=== PATIENT | female | born 1985 | race Caucasian/White ===

== ENCOUNTER 2018-01-07 06:05 | Day surgery (SDC) | payer OTHER ==
[2018-01-07] MEDS ORDERED: ceFAZolin 2 GM/50 ML 2 GM/50 ML BAG IV ONE (06:31)
[2018-01-07] MEDS ORDERED: LACTATED RINGERS 1,000 ML IV ONE ×3 (06:55→14:08)
[2018-01-07 06:58] LABS: HCG UR QUAL NEGATIVE
--- NOTE | 2018-01-07 07:21 | ANESTHESIA ---
Pre-Anesthesia VS, & Labs - Diagnosis ACL tear - Procedure R ACL repair Vital Signs: Temp Pulse Resp BP Pulse Ox 36.7 C 87 16 113/76 100 01/07/18 06:40 01/07/18 06:40 01/07/18 06:40 01/07/18 06:40 01/07/18 06:40 Height 5 ft 4 in Weight (kg) 71.8 kg - NPO >8 hours - Is Patient ?: No - Lab Results Lab results reviewed: Yes Home Medications and Allergies Home Medications: Ambulatory Orders Norgestimate-Ethinyl Estradiol [Pat 0.25-0.035 mg Tablet] 1 each PO 12/28/17 buPROPion [Wellbutrin Sr] 150 mg PO BID 12/28/17 Norgestimate-Ethinyl Estradiol [Pat 0.25-0.035 mg Tablet] 1 each PO 12/28/17 buPROPion [Wellbutrin Sr] 150 mg PO BID 12/28/17 Allergies/Adverse Reactions: Allergies Allergy/AdvReac Type Severity Reaction Status Date / Time amoxicillin Allergy Hives Verified 12/28/17 12:05 Anes History & Medical History - Anesthetic History Anesthesia Complications: reports: No previous complications Family history of Anesthesia Complications: Denies Family history of Malignant Hyperthermia: Denies - Medical History Cardiovascular: reports: None Pulmonary: reports: None Gastrointestinal: reports: None Urinary: reports: None Musculoskeletal: reports: Other Endocrine/Autoimmune: reports: None Skin: reports: None Exam General: Alert, Oriented x3 Dental: WNL Mouth Openin Fingerbreadth Neck Mobility: Normal Mallampati classification: II Thyromental Distance: 4-6 cm Respiratory: Lungs clear, Normal breath sounds, No respiratory distress, No accessory muscle use Cardiovascular: Regular rate Neurological: Normal speech Mental/Cognitive Status: Alert/Oriented X3, Normal for patient Plan Anesthesia Type: General, Femoral Block (possible) Consent for Procedure(s) Verified and Reviewed: Yes Code Status: Attempt Resuscitation ASA classification: 1-Healthy patient Is this case an emergency?: No
[2018-01-07] MEDS ORDERED: BUPIVACAINE 0.25% PF 30 ML VIAL ONE (07:31)
[2018-01-07] MEDS ORDERED: fentaNYL 100 MCG/2 ML VIAL IVP ONE (07:45)
[2018-01-07] MEDS ORDERED: KETOROLAC 30 MG/ML VIAL IVP ONE (07:45)
[2018-01-07] MEDS ORDERED: ROPIVACAINE 0.5% PF 20 ML AMPULE EP ONE (07:45)
[2018-01-07] MEDS ORDERED: MIDAZOLAM 2 MG/2 ML VIAL IVP ONE (07:45)
[2018-01-07] MEDS ORDERED: ONDANSETRON 4 MG/2 ML VIAL IVP ONE (07:45)
[2018-01-07] MEDS ORDERED: PROPOFOL 200 MG/20 ML VIAL IVP ONE (07:45)
[2018-01-07] MEDS ORDERED: DEXAMETHASONE 4 MG/ML VIAL IVP ONE (07:45)
[2018-01-07] MEDS ORDERED: LIDOCAINE-MPF 2% 5 ML VIAL IM ONE (07:45)
[2018-01-07] MEDS ORDERED: EPINEPHrine 1 MG/ML AMP ONE ×2 (08:10→10:20)
[2018-01-07] MEDS ORDERED: EPINEPHrine 1 MG/ML AMP IVP ONE (08:23)
[2018-01-07] MEDS ORDERED: BUPIVACAINE 0.25% PF 30 ML VIAL SUBQ ONE ×2 (08:23→11:20)
[2018-01-07] MEDS ORDERED: ONDANSETRON 4 MG/2 ML VIAL IVP PRN (11:47)
[2018-01-07] MEDS ORDERED: oxyCODONE 5 MG TABLET PO PRN (11:47)
--- NOTE | 2018-01-07 11:54 | OPERATIVE REPORT ---
Operative Report - General Planned Procedure: Right knee arthroscopic assisted ACL reconstruction, meniscal repair versus Pre-Op Diagnosis: Right knee ACL tear, medial meniscal tear, patellofemoral chondromalacia. Procedure Performed: Right knee arthroscopic assisted ACL reconstruction with BTB autograft, Right medial meniscus repair, right lateral meniscal debridement, patellar chondroplasty Post Op Diagnosis: Right knee ACL tear, medial meniscal tear, lateral meniscal fraying, patell - Procedure Note Primary Surgeon: Jose Martinez MD Secondary Surgeon: Moses Tovar MD Anesthesia Technique: General LMA Estimated Blood Loss (mL): 75 Complications: None - Other Other Information/Narrative: Examination under anesthesia: Extension -005, flexion 140, Alexandro 2B, pivot shift ++, stable to varus and valgus stress at 0 and 30, negative posterior drawer. Arthroscopic findings: 1. Patella and trochlea: Mild patellar fraying, Grade I-II 2. Medial compartment: Torn PH MM at periphery: With subluxation into the joint with valgus stress and knee flexion. Some chondal fissuring 3. Lateral compartment: Near circumferential lateral meniscus with redundant tissue in lateral notch (possibly old, synovialized ACL remnant) 4. ACL absent. PCL intact. Implants: Femur: Arthrex BTB tight rope Tibia: Arthrex 9x 20 mm metal interference screw, Arthrex 4.75 mm swivel lock anchor Tourniquet: Right thigh 250 mmHg, approximately 130 minutes Indications: Is a 32-year-old female with long-standing history of right knee pain, most recently she [place] on the ship several years ago and had persistent pain and instability of her right knee. During that injury she denied any significant swelling nor inability to bear weight, However MRI and clinical exam were both consistent with a right ACL insufficiency. She had failed appropriate nonoperative management to include activity modification physical therapy and oral NSAID use. Risk benefits and alternatives to right knee arthroscopy with possible ACL reconstruction were discussed at length with the patient, including risks of bleeding, infection, fracture, implant complications, damage to nerves, blood vessels and other structures, persistent knee pain, need for further procedures, blood clots to include pulmonary embolus, and risks of anesthesia, heart attack, stroke, . After long discussion she desired to proceed with surgery for right ACL reconstruction and meniscal repair versus debridement. Procedure Details: The patient was met in the preoperative hold area. We reviewed the risks benefits and alternatives to surgery. Consent was reviewed. All questions were answered. The patient confirmed the surgical site as the right knee. I initialed the surgical site. The patient then met with anesthesia and was brought back to the operating room. The patient was placed supine on the operating table. A well-padded tourniquet was placed on the thigh. A general anesthetic was induced and an LMA was placed. An examination under anesthesia was performed knee with the above-stated findings. The knee was then prepped and draped in the usual sterile fashion. A surgical timeout was then performed. The correct patient, correct procedure, and the correct surgical site were confirmed by everyone in the room. Perioperative antibiotics had been delivered. Following timeout and administration of antibiotics an 11 blade scalpel was used to make an anteromedial and anterolateral arthroscopic portal. The arthroscope was introduced into the knee and a diagnostic arthroscopy was performed with the above-stated findings. The arthroscopic equipment was removed and the Esmarch was used to exsanguinate the lower extremity and the tourniquet was raised to 250 mmHg. A 10 blade was used to make a midline incision over the patellar tendon. Dissection was carried down to the level of the peritenon. The peritenon was incised and medial and lateral flaps of the peritenon raised to expose the entirety of the patellar tendon, the distal patella, and tibial tubercle. A 10 blade as used to harvest the central one cm of the patellar tendon. An oscillating saw and osteotomes were used to harvest a 10 x 30 mm bone plug from the tibial tubercle. An oscillating saw and osteotomes were used to harvest a 10 x 20 mm bone plug from the distal patella. 2 #2 fiber wires were placed anterior to posterior through the tibial tubercle bone plug to aid in graft passage and fixation. The graft was taken to the back table and trimmed to fit through a 9 mm tunnel, and the tight rope was placed through the patellar bone plug. A soft tissue notchplasty was performed with a combination of the arthroscopic sucker shaver and ArthroCare wand. The excess soft tissue that appeared to bridge from the posterior root of the lateral meniscus to the anterior root of the lateral meniscus was debrided taking care to not destabilize the lateral meniscus. Next we turned our attention to the medial meniscus, To better visualize the tear we removed the arthroscopic cannula into the medial Gillquist interval over a switching stick, the cervix was visualized and was able to directly visualize the meniscocapsular separation/the peripheral posterior horn medial meniscal tear.This was then prepared using a ball rasp. Then a [employer] FasT-Fix 360 was introduced into the medial compartment and deployed in Horizontal mattress fashion securing the posterior horn to the posterior capsule. The posterior horn was then probed and found to be stable. Next we turned our attention to preparing the femoral and tibial tunnels. The Arthrex flip cutter guide was set to 100 and placed onto the [place] femoral footprint of the ACL. A stab incision was made on the distal lateral thigh through the IT band to accommodate the flip cutter trocar. The trocar was placed on the lateral femoral condyle. The flip cutter was drilled through the trocar and into the intra-articular notch. The fit flip cutter blade was engaged and a 9 mm socket was drilled to a depth of 25 mm. A passing suture was placed through the flip cutter guide and the guide instruments were then removed. The tibial tunnel guide was placed on the tibial footprint of the ACL. A guidepin was placed through the trocar and then overreamed with a 9 mm reamer. The passing suture was retrieved from the joint and brought out through the tibial tunnel to aid in graft passage. The graft was then retrieved from the back table. The graft was passed in a retrograde fashion through the tibial tunnel. The tight rope button was placed onto the lateral femoral cortex with excellent security. The tight rope was then tightened and the patellar bone plug was shuttled up into the femoral socket with excellent fit. Longitudinal traction was used to test fixation, which was solid. The knee was then cycled and placed into full extension and an 9 x 20 mm metal cannulated interference screw was placed in the tibia. A Alexandro was performed and was 1A. The scope was reinserted in the knee and there was no prominent hardware. The tension on the graft was appropriate. There was no notch impingement. The tightrope was checked by retightening, followed by 3 alternating half hitches for backup fixation. The excess limbs of suture were then trimmed. Backup fixation on the tibia was performed with a 4.75 mm swivel lock. This was drilled and tapped in standard fashion and then for all 4 limbs of the FiberWire from the tibial side of the autograft were placed through the swivel lock and secured in standard fashion. This was reassessed and found to have good tension. The wounds were then copiously irrigated. The excess trimmings of bone were placed back into the patellar donor site. DBX was then used to fill the remaining void. The patellar tendon was gently reapproximated with 0 Vicryl suture in a simple stitch at the inferior pole of the patella. The peritenon was closed with a running 0 Vicryl suture. All wounds were again copiously irrigated with normal saline and we began our closure. The IT band was closed with 0 Vicryl suture. Subcutaneous tissues were closed with 2-0 Vicryl. Skin was closed with a running buried 3-0 Monocryl. The distal lateral thigh stab incision was closed with a 3-0 Monocryl. The wounds were then cleaned and dried, and covered with Xeroform. The incisions were infiltrated with 0.25% Marcaine. Sterile cotton gauze was placed over the incisions followed by and ABD and NIKKI stocking. The tourniquet was lowered. The surgical drapes were removed. The knee was placed into a knee immobilizer. The patient was awoken from anesthesia, extubated, and taken to the PACU for recovery in good condition. Postoperative plan: 1. Discharge home from the same day surgery facility once discharge criteria has been met. 2. NWB with crutches with leg locked in extension in knee immobilizer . 3. Will follow postoperative ACL rehabilitation protocol. Anticipate in-line running activities at 3 months postop, cutting and pivoting activities at 6 months postop. 4. Return to clinic in 1-2 weeks days for wound check. 5. Full strength aspirin 30 days for DVT prophylaxis.
[2018-01-07] MEDS ORDERED: ONDANSETRON 4 MG/2 ML VIAL ONE (11:55)
[2018-01-07] MEDS ORDERED: PROMETHAZINE 25 MG/1 ML VIAL ONE (12:33)
[2018-01-07] MEDS: HYDROmorphone 1 MG/ML CARPUJECT ONE ×3 (12:37→12:55)
[2018-01-07] MEDS ORDERED: fentaNYL 100 MCG/2 ML VIAL ONE (13:19)
--- NOTE | 2018-01-07 13:43 | XRAY Report ---
Reason: s/p ACLR Procedure Date: 01/07/2018 Accession Number: [id number] / [id number] Procedure: XR - Knee 2 View RT CPT Code: FULL RESULT: EXAM: RIGHT KNEE RADIOGRAPHY EXAM DATE: 01/07/2018 12:30 PM. CLINICAL HISTORY: S/p ACLR. COMPARISON: None. TECHNIQUE: 2 views. FINDINGS: Intraprocedural views demonstrate ACL repair. Soft tissue air is an expected postsurgical finding. Alignment appears anatomic. IMPRESSION: Status post ACL repair. Anatomic alignment. RADIA
[2018-01-07 14:42] VITALS: BP 123/84
[2018-01-07] MEDS ORDERED: SCOPOLAMINE PATCH TOP ONE (15:02)
== END 2018-01-07 06:06 | disposition home or self-care (01) ==
LOC: SDS 06:05
PROVIDERS: ATTEND Orthopaedic Surgery
PROC: 0LBQ0ZZ Excision of Right Knee Tendon, Open Approach (ICD-10-PCS; 2018-01-07)
PROC: 0SQC4ZZ Repair Right Knee Joint, Percutaneous Endoscopic Approach (ICD-10-PCS; 2018-01-07)
PROC: 0SBC4ZZ Excision of Right Knee Joint, Percutaneous Endoscopic Approach (ICD-10-PCS; 2018-01-07)
PROC: 0MRN47Z Replacement of Right Knee Bursa and Ligament with Autologous Tissue Substitute, Percutaneous Endoscopic Approach (ICD-10-PCS; principal; 2018-01-07 07:30)
DX: S83.241A Other tear of medial meniscus, current injury, right knee, initial encounter (principal); S83.511A Sprain of anterior cruciate ligament of right knee, initial encounter; M22.41 Chondromalacia patellae, right knee; Z87.891 Personal history of nicotine dependence
CPT/HCPCS: 29881; 29882; 29888; 73560; 81025; C1713; J0690; J1170; J3490; J7120

== ENCOUNTER 2019-11-15 10:45 | Day surgery (SDC) | payer OTHER ==
[2019-11-15] MEDS ORDERED: LACTATED RINGERS 1,000 ML IV ONE ×2 (10:55→14:05)
[2019-11-15 11:04] LABS: HCG UR QUAL NEGATIVE
--- NOTE | 2019-11-15 11:19 | ANESTHESIA POST OP EVALUATION ---
Anesthesia Post Eval - Post Anesthesia Eval Vitals: Last Vital Signs Temp 36.4 C L 11/15/19 10:55 Pulse 88 11/15/19 10:55 Resp 16 11/15/19 10:55 BP 114/83 H 11/15/19 10:55 Pulse Ox 98 11/15/19 10:55 CV Function Including HR & BP: positive: Stable Pain Control: positive: Satisfactory Nausea & Vomiting: positive: Negative Mental Status: positive: Baseline Respiratory Status: Airway Patent Hydration Status: Satisfactory (Discharged home doing very well.) Anesthesia Complications: positive: None
[2019-11-15] MEDS ORDERED: CEFAZOLIN SODIUM IN 0.9 % NACL 2 GM/100 ML BAG IV ONE (11:21)
[2019-11-15] MEDS ORDERED: DEXAMETHASONE 4 MG/ML VIAL IVP ONE (11:22)
[2019-11-15] MEDS ORDERED: ONDANSETRON 4 MG/2 ML VIAL IVP ONE (11:22)
[2019-11-15] MEDS ORDERED: PROPOFOL 200 MG/20 ML VIAL IVP ONE (11:22)
[2019-11-15] MEDS ORDERED: fentaNYL 100 MCG/2 ML VIAL IVP ONE (11:22)
[2019-11-15] MEDS ORDERED: LIDOCAINE-MPF 2% 5 ML VIAL IM ONE (11:22)
--- NOTE | 2019-11-15 11:23 | PROVIDER PROGRESS NOTE ---
Subjective - Prog Note Date Prog Note Date: 11/15/19 Prog Note Time: 11:22 - Subjective Subjective: Post op note written in error Objective - Vital Signs/Intake & Output Vital Signs: Vital Signs x48h Temp Pulse Resp BP Pulse Ox 11/15/19 10:55 36.4 C L 88 16 114/83 H 98 - Lab Results Other Labs: Lab Results x24hrs 11/15/19 Range/Units 10:56 Ur Specific [place] >=1.030 H (1.002-1.030) Urine HCG, Qual NEGATIVE
[2019-11-15] MEDS ORDERED: MORPHINE 2 MG/ML CARPUJECT IVP PRN (11:33)
[2019-11-15] MEDS ORDERED: ATROPINE ABBOJECT 1 MG/10 ML SYRINGE IVP PRN (11:33)
[2019-11-15] MEDS ORDERED: HYDROmorphone 0.5 MG/0.5 ML SYRINGE IVP PRN (11:33)
[2019-11-15] MEDS ORDERED: NALOXONE 0.4 MG/ML VIAL IVP PRN (11:33)
[2019-11-15] MEDS ORDERED: ONDANSETRON 4 MG/2 ML VIAL IVP PRN ×2 (11:33→14:27)
[2019-11-15] MEDS ORDERED: ePHEDrine 50 MG/ML VIAL IVP PRN (11:33)
[2019-11-15] MEDS ORDERED: BUPIVACAINE 0.25% PF 30 ML VIAL ONE (11:40)
[2019-11-15] MEDS ORDERED: LACTATED RINGERS 1,000 ML IV SCH (12:00)
[2019-11-15] MEDS ORDERED: BUPIVACAINE 0.25% PF 30 ML VIAL SUBQ ONE (12:18)
--- NOTE | 2019-11-15 12:42 | ANESTHESIA ---
Pre-Anesthesia VS, & Labs - Diagnosis Right Bunion - Procedure Right Bunionectomy Vital Signs: Temp Pulse Resp BP Pulse Ox 36.4 C L 88 16 114/83 H 98 11/15/19 10:55 11/15/19 10:55 11/15/19 10:55 11/15/19 10:55 11/15/19 10:55 Height: 5 ft 4 in Weight (kg): 77.7 kg Body Mass Index: 29.4 BMI Classification: Overweight - Is Patient ?: No Home Medications and Allergies Home Medications: Ambulatory Orders Bupropion HCl [Wellbutrin Xl] 300 mg PO 11/08/19 Multivitamin 1 each PO 11/08/19 Active Medications Atropine Sulfate () 0.5 mg IVP Q5M PRN PRN Reason: Bradycardia Stop: 11/16/19 11:33 Ephedrine Sulfate () 10 mg IVP Q5M PRN PRN Reason: HYPOTENSION Stop: 11/16/19 11:33 Fentanyl (Fentanyl) 25 - 50 mcg IVP Q5M PRN PRN Reason: BREAKTHROUGH PAIN (2nd Choice) Stop: 11/16/19 11:33 Hydromorphone HCl (Dilaudid Inj Syringe) 0.2 - 0.6 mg IVP Q5M PRN PRN Reason: PAIN (First Choice) Stop: 11/16/19 11:33 Lactated Ringer's (Lr) 1,000 mls @ 100 mls/hr IV .Q10H JOHN Stop: 11/15/19 21:59 Morphine Sulfate (Morphine (Carpuject)) 2 - 4 mg IVP Q5M PRN PRN Reason: PAIN (3rd Choice) Stop: 11/16/19 11:33 Naloxone HCl (Narcan) 0.1 mg IVP Q2M PRN PRN Reason: RESP RATE <8 Stop: 11/16/19 11:33 Ondansetron HCl (Zofran Inj) 4 mg IVP ONCE PRN PRN Reason: N/V (First Choice) Stop: 11/16/19 11:33 Bupropion HCl [Wellbutrin Xl] 300 mg PO 11/08/19 Multivitamin 1 each PO 11/08/19 Allergies/Adverse Reactions: Allergies Allergy/AdvReac Type Severity Reaction Status Date / Time amoxicillin Allergy Hives Verified 11/08/19 09:13 Anes History & Medical History - Anesthetic History Anesthesia Complications: reports: Post-Operative Nausea/Vomiting Family history of Anesthesia Complications: Denies Family history of Malignant Hyperthermia: Denies - Medical History Cardiovascular: reports: None Pulmonary: reports: None Gastrointestinal: reports: None Urinary: reports: None Neuro: reports: None Musculoskeletal: reports: Other (Bunions) Endocrine/Autoimmune: reports: None Blood Disorders: reports: None Skin: reports: None Smoking Status: Former smoker Psychosocial: reports: Depression History of Cancer?: No - Surgical History Orthopedic: ACL reconstruction Exam Dental: WNL Mouth Openin Fingerbreadth Neck Mobility: Normal Mallampati classification: II Thyromental Distance: 4-6 cm Respiratory: Lungs clear Cardiovascular: Regular rate Abdomen: Normal bowel sounds, Soft, No tenderness, No hepatospenomegaly, No masses Extremities: No clubbing, No cyanosis, No edema, Normal pulses, No tenderness/swelling Neurological: Normal gait, Normal speech, Strength at 5/5 X4 ext, Normal tone, Sensation intact, Cranial nerves 3-12 NL, Reflexes 2+ Mental/Cognitive Status: Alert/Oriented X3, Normal for patient Cognitive Status: Within normal limits Plan Anesthesia Type: General Consent for Procedure(s) Verified and Reviewed: Yes Code Status: Attempt Resuscitation ASA classification: 2-Mild systemic disease Is this case an emergency?: No
[2019-11-15] MEDS ORDERED: HYDROmorphone 0.5 MG/0.5 ML SYRINGE ONE (14:22)
[2019-11-15] MEDS ORDERED: ONDANSETRON 4 MG/2 ML VIAL ONE (14:22)
[2019-11-15] MEDS: fentaNYL 100 MCG/2 ML VIAL IVP PRN ×2 (14:25→14:31)
[2019-11-15] MEDS ORDERED: oxyCODONE 5 MG TABLET PO PRN (14:27)
[2019-11-15] MEDS ORDERED: fentaNYL 100 MCG/2 ML VIAL ONE (14:30)
--- NOTE | 2019-11-15 14:34 | OPERATIVE REPORT ---
Operative Report - Other Other Information/Narrative: Date of Surgery: 15 November 2019 Pre-Op Diagnosis: Right hallux valgus Procedure: Right foot bunion correction with first metatarsal scarf osteotomy and modified Mcgee procedure Postop Diagnosis: Same Primary Surgeon: Moses Tovar Secondary Surgeon: Jose Martinez Complications: None Tourniquet Time: 110 minutes EBL: 5 cc Bunion Postoperative Plan: 0-2 weeks: No weight bearing leave dressing intact 2 week appt: Non weight bearing xrays, sutures out, bunion brace applied 2-4 weeks: No weight bearing, may remove bunion brace for showers, no soaking incision 4 week appt: Reassess, provide forefoot offloading hard soled shoe 4-8 weeks: WBAT in forefoot offloading shoe, continue to use bunion brace 8 week angelica: Weight bearing xrays, may transition to normal shoe Indication For Surgery: 34-year-old female with longstanding bilateral bunions. She has transition to the widest boot and shoes possible yet she continues to have pain that is activity limiting. The risks, benefits, and alternatives were discussed. Risks include pain, bleeding, infection, damage to nearby structures, numbness, recurrence of bunion, hallux varus, lack of symptom relief, implant complications, nonunion, need for further surgery, DVT, PE, stroke, and . Written consent was obtained. Procedure in Detail: The patient was met in the pre-operative hold area on the day of the procedure. The operative extremity was signed and questions were answered. The patient was brought to the operating room and a general anesthetic was administered. Supine position was used and bony prominences were padded. Standard prepping and draping was performed. A time out confirmed patient identification, laterality, procedure, allergies, antibiotics, and images. An Esmarch was used to exsanguinate the limb and the tourniquet was elevated to 250 mmHg. A 3 cm incision was made between the first and second metatarsal heads and blunt dissection was carried down. The neurovascular bundle was protected with a dull retractor. I identified the adductor tendon and the intermetacarpal ligament and sharply resected them from their attachments on the first ray. I took care to leave the flexor hallucis brevis attached to the lateral sesamoid. I incised the capsule between the sesamoid and the metacarpal head. I then pie crusted the lateral capsule between the metacarpal head and the proximal phalanx. A varus force was then applied to the toe and the toe freely moved in the varus. This wound was then packed with gauze A direct medial incision was made over the first metatarsal from the metatarsal phalangeal joint to just short of the tarsometatarsal joint. Blunt dissection was used to identify the dorsal cutaneous nerve and this was protected throughout the case. Full-thickness skin flaps were created. A full-thickness longitudinal capsular incision was made in the first MTP joint and the capsule was dissected off of the metatarsal head ensuring to preserve the plantar capsular attachments with the accompanying blood supply. A periosteal elevator was used to free the periosteum along the medial shaft. A silver osteotomy was then performed just off the cartilage surface ensuring to leave a medial shoulder. The distal dorsal transverse osteotomy was then made perpendicular to the first metatarsal shaft starting centrally and the metatarsal head. The total sawblade was left in place and the plantar proximal transverse osteotomy was made parallel to this ensuring to be within metaphyseal bone. The longitudinal osteotomy was then made parallel to the walking surface of the foot. A second proximal transverse osteotomy was made and a 4 mm chunk of bone was removed. A freer elevator was used to release the periosteum on the lateral surface to allow for the shift. I then shifted the plantar fragment laterally and pulled the dorsal fragment medially. This was then clamped in place and imaging confirmed excellent position. The plantar capsule was pulled on and the sesamoids reduced nicely. Satisfied with this position, countersunk 2.0 millimeter screws were placed proximally and distally confirming excellent purchase. The clamp was then removed and the fixation was stable. The medial shelf of bone was then excised with a sagittal saw. The wound was irrigated copiously. The medial shelf fragment was then flipped and inverted and placed plantarly at the osteotomy site. Images were again taken. I then reassessed the toe and found that there was good spread between the first and second toe and determined that an Michael osteotomy was not necessary. I then excised the excess medial capsule and performed a medial capsular repair to the bone just proximal to the joint line through a 1.1 mm hole. This was backed up with multiple 0 Vicryl sutures. The periosteal layer was then closed with 0 Vicryl. The skin was closed with 2-0 Vicryl in the subdermis and 3-0 nylon in the skin. 10 cc of quarter percent Marcaine without epinephrine was placed deep to the incision. A sterile bunion dressing was applied. The patient was awakened and transferred to the recovery room.
--- NOTE | 2019-11-15 15:30 | ANESTHESIA POST OP EVALUATION ---
Anesthesia Post Eval - Post Anesthesia Eval Vitals: Last Vital Signs Temp 36.4 C L 11/15/19 15:02 Pulse 98 11/15/19 15:15 Resp 16 11/15/19 15:15 BP 115/80 11/15/19 15:15 Pulse Ox 98 11/15/19 15:15 CV Function Including HR & BP: positive: Stable Pain Control: positive: Satisfactory Nausea & Vomiting: positive: Addtional Therapies Ordered (Will order scope patch. Instructed to leave on for 3 days.) Mental Status: positive: Baseline Respiratory Status: Airway Patent Hydration Status: Satisfactory Anesthesia Complications: positive: None
[2019-11-15] MEDS ORDERED: SCOPOLAMINE PATCH TOP SCH (15:35)
[2019-11-15 16:09] VITALS: BP 120/74
== END 2019-11-15 10:46 | disposition home or self-care (01) ==
LOC: SDS 10:45
PROVIDERS: ATTEND Orthopaedic Surgery
DX: M20.11 Hallux valgus (acquired), right foot (principal); M21.42 Flat foot [pes planus] (acquired), left foot; M21.41 Flat foot [pes planus] (acquired), right foot; Z79.82 Long term (current) use of aspirin; Z87.891 Personal history of nicotine dependence
CPT/HCPCS: 81025